=== PATIENT | male | born 1970 | race Caucasian/White ===

== ENCOUNTER 2024-03-01 21:24 | Emergency (ER) | payer OTHER, SELFPAY ==
[2024-03-01 21:25] VITALS: BP 136/80
--- NOTE | 2024-03-01 21:48 | ED.GENMED ---
History of Present Illness
General
Chief Complaint: Skin Surface Trauma
Source: patient and other (friend)
Exam Limitations: none
Time Seen by Provider: 03/01/24 21:37
History of Present Illness
History of Present Illness:
53-year-old male who presents after he slipped on ice, not a restaurant and fell backward striking his head. Patient denies loss of consciousness. Friend reports that he seemed himself right away and just got up. Suffered a small wall head. Does
report a little bit of tightness in his trapezius region bilaterally but states that is just developed over little bit of time. States he is not concerned he broke his neck as he had no immediate pain. Denies numbness or tingling the extremities.
No weakness to the extremities. No vision changes. No nausea.
Past History
Past History
ED Past Medical History: Other (HIV positive, bipolar disorder)
ED Past Surgical History: None
Social History
Living: with family
Phy Exam
Physical Exam
Physical Exam:
CONSTITUTIONAL Vital signs reviewed, Patient alert and oriented to person, place and time. Well-appearing
HEAD small abrasion to the mid posterior top of the scalp. No active bleeding. No crepitus. No step-offs of the skull.
EYES eyelids normal to inspection, Extraocular muscles intact, Conjunctiva normal, Sclera normal.
NECK normal range of motion, Trachea midline, no jugular venous distention. No midline tenderness. Mild trapezius tenderness bilaterally
RESP no respiratory distress
BACK No obvious deformities
UPPER EXTREMITY Gross Range of motion normal, gross motor strength normal
LOWER EXTREMITY Gross range of motion normal, Gross motor strength normal
NEURO Speech normal, No focal motor deficits include, Brockwell coma scale 15, Memory normal, Cranial Nerves intact to screening exam. No pronator drift. Normal gait
SKIN Skin warm, dry, and normal in color.
PSYCHIATRIC Patient oriented to person place and time, Normal affect.
Course
Vital Signs
Initial and Last Documented VS:
Initial Vital Signs
Temp Pulse Resp BP Pulse Ox
97.8 F 76 18 136/80 100
03/01/24 21:25 03/01/24 21:25 03/01/24 21:03/01/24 21:03/01/24 21:25
Last Documented Vital Signs
Temp Pulse Resp BP Pulse Ox
97.8 F 76 18 136/80 100
03/01/24 21:25 03/01/24 21:25 03/01/24 21:25 03/01/24 21:03/01/24 21:25
MDM/Problems Addressed
Differential Diagnosis Includes:
Concussion, intracranial hemorrhage, skull fracture
MDM/Problems Addressed:
Skin abrasion, head injury
*Pulse Oximetry
Patient hypoxic: no
*Critical Care Note
Total Time (30-74mins, 75-104mins- exclusive of procedures): Not Applicable
Data Reviewed
Source: patient and other (Friend)
Further Testing Considered But Not Given:
Consider head CT. However no loss conscious. No current symptoms. Normal neurologic assessment. Low risk injury
Patient Management
Escalation/DeEscalation of care consider admission/obs:
Patient appears well. Shared decision making with the patient regarding head CT. Patient does appear well and he feels comfortable foregoing CT imaging. I did recommend that he closely monitor for any symptoms or return immediately for any
symptoms. Patient agrees. Injury occurred almost an hour ago and patient is well-appearing and without any gross signs of intracranial hemorrhage.
ED Attending Note
-
Portions of this chart may have been created with voice recognition software.� Occasional wrong word or��sound alike� substitutions may have occurred due to the inherent limitations of voice recognition software.
Discharge Plan
Departure
Patient Disposition: Home (Routine Discharge)
Date of Disposition: 03/01/24
Time of Disposition: 21:49
Patient with high blood pressure during this ER visit?: No
Discharge Problem:
Head injury, Abrasion
Instructions: Wound Care (DC), Head Injury in Adults (DC)
Activity Restrictions/Additional Instructions:
Return today for changes in mentation, headache, vomiting, vision changes, motor weakness, numbness, tingling or any other concerns. Please see your doctor in the next 1 week if any symptoms persist.
Interventions
Interventions:
*Risk Screen - Suicide Last Done: 03/01/24 21:25
*General Assessment Last Done: 03/01/24 21:40
*Neglect/Abuse Screening Last Done: 03/01/24 21:25
ED- Fall Risk Assessment Last Done: 03/01/24 21:40
ED- Neurological Assessment Last Done: 03/01/24 21:40
ED-Skin Assessment Last Done: 03/01/24 21:40
Discharge Date and Time
Print Language: SAMI
== END 2024-03-01 21:58 | disposition home or self-care (01) ==
LOC: EMR 21:24
PROVIDERS: EMERGENCY PHYSICIAN Emergency Medicine; FAMILY PHYSICIAN Nurse Practitioner Gerontology
DX: S00.01XA Abrasion of scalp, initial encounter (principal); W00.0XXA Fall on same level due to ice and snow, initial encounter; Z21 Asymptomatic human immunodeficiency virus [HIV] infection status
CPT/HCPCS: 99282

== ENCOUNTER 2024-06-08 22:54 | Emergency (ER) | payer OTHER, SELFPAY ==
[2024-06-08 22:57] VITALS: BP 108/70
--- NOTE | 2024-06-09 00:41 | EDRN ---
L ankle with bruising up his L lateral leg. Pt has pain L buttocks. Pt ambulated through out the day and swelling increased.
--- NOTE | 2024-06-09 01:17 | ED.GENMED ---
History of Present Illness
General
Chief Complaint: Musculo-Skeletal Complaint
Source: patient
Exam Limitations: none
Time Seen by Provider: 06/09/24 00:33
Nursing documentation reviewed up to this point in time: agreed with
History of Present Illness
History of Present Illness:
53-year-old male with history as noted presents for evaluation of left ankle injury. Patient tripped on stairs and suffered inversion injury of the left ankle last night. Had some immediate pain but was able to bear weight today had increased
bruising and swelling and so he came to the ER for evaluation. He denies any other injuries. Denies any head trauma, neck pain, back pain, chest pain or any other complaints.
Past History
Past History
ED Past Medical History: Other (HIV positive, bipolar disorder)
ED Past Surgical History: None
Social History
Living: with family
Review of Systems
Review of Systems
All Other Systems: ROS reviewed and negative except as documented in HPI and ROS
Cardiac: Denies chest pain
ABD/GI: Denies abdominal pain
Musculoskeletal: Reports joint pain; Denies neck pain or back pain
Neurological: Denies headache
Phy Exam
Physical Exam
Physical Exam:
General: Awake, alert, oriented x3; no acute distress
Head: Normocephalic, atraumatic
Eyes: Conjunctiva normal, pupils equal round and reactive to light bilaterally
Throat: Airway intact
Neck: Trachea midline, no cervical spine tenderness
Back: No signs of trauma to the back or flank and no tenderness in the thoracic or lumbar spine
Lungs: Breathing comfortably no distress
Heart: Regular rate; no chest wall tenderness
Abd: Soft, non distended, nontender
Neuro: No gross deficits
Extremities: Patient has some edema around the left ankle; he has bruising anterior lateral left ankle as well as on the lateral margin of the foot and around the toes on the left foot; he has focal tenderness around the lateral malleolus and in the
area of the ATFL; no tenderness of the medial malleolus, midfoot, fifth metatarsal, calcaneus, no tenderness along the Achilles tendon; no tenderness in the left knee; rest of extremities are atraumatic
Scores
Heart Failure Risk
Heart Failure Risk Score: Not Applicable
Heart Score for Chest Pain Patients
STEMI patient?: Not applicable
Withdrawal Assessment of Alcohol
Withdrawal Assessment Completed?: Not applicable
Course
Orders/Labs/Results
Orders:
Orders
06/09/24 00:00
CR Ankle - Left Min 3 Views Urgent
Reason For Exam: fall, injury
CR Foot - Left Min 3 Views Urgent
Reason For Exam: fall, injury
Vital Signs
Initial and Last Documented VS:
Initial Vital Signs
Temp Pulse Resp BP Pulse Ox
37.2 C 70 18 108/70 98
06/08/24 22:57 06/08/24 22:57 06/08/24 22:57 06/08/24 22:57 06/08/24 22:57
Last Documented Vital Signs
Temp Pulse Resp BP Pulse Ox
37.2 C 70 18 108/70 98
06/08/24 22:57 06/08/24 22:57 06/08/24 22:57 06/08/24 22:57 06/08/24 22:57
MDM/Problems Addressed
Differential Diagnosis Includes:
Ankle sprain, ankle fracture
MDM/Problems Addressed:
53-year-old male presents for evaluation after ankle injury as above. X-ray of the foot and ankle reviewed by me shows no acute fracture. Suspect ankle sprain. Will place in Ortho boot, weight-bear as tolerated. Provide crutches to use as
needed. Follow-up with primary doctor as an outpatient. Advised regarding RICE. All questions answered.
*Radiology
Radiology exam reviewed: preliminary read by ED provider
*Pulse Oximetry
Patient hypoxic: no
*Critical Care Note
Total Time (30-74mins, 75-104mins- exclusive of procedures): Not Applicable
Data Reviewed
Source: patient
ED Attending Note
-
Portions of this chart may have been created with voice recognition software.� Occasional wrong word or��sound alike� substitutions may have occurred due to the inherent limitations of voice recognition software.
Discharge Plan
Departure
Patient Disposition: Home (Routine Discharge)
Date of Disposition: 06/09/24
Time of Disposition: 01:21
Patient with high blood pressure during this ER visit?: No
Discharge Problem:
Ankle sprain
Instructions: Sprain (DC), RICE Therapy
Referrals:
Anuja Wallis MD [Family Provider] -
Vitor Herman DPM [Active] - As needed (senior accounting specialist�follow-up as needed if symptoms not improving with conservative measures)
Activity Restrictions/Additional Instructions:
Thank you for visiting the Emergency Department at [facility].
1. Please schedule a follow up appointment as directed. Call first thing tomorrow morning to make an appointment.
2. If indicated, please take your medications as instructed and indicated on discharge paperwork.
3. If any of your symptoms do not improve, or persist, or become more severe within 6-12 hours, please return to the emergency department for further care.
4. Please return to the emergency department if you develop a headache, neck pain/stiffness, fever greater than 100.4F, chest pain, shortness of breath, persistent nausea, vomiting, slurred speech, difficulty walking, numbness/tingling, weakness,
signs of infection or any other symptoms that are worrisome to you.
Please call [phone] if you have any questions.
Interventions
Interventions:
*Risk Screen - Suicide Last Done: 06/08/24 22:59
*General Assessment Last Done: 06/09/24 00:38
*Neglect/Abuse Screening Last Done: 06/08/24 22:59
*ED- Fall Risk Assessment Last Done: 06/08/24 22:59
*ED COVID-19 Vaccine History Last Done: 06/08/24 22:59
ED-Musculoskeletal Assessment Last Done: 06/09/24 00:38
Discharge Date and Time
Print Language: BOLIVIAN
== END 2024-06-09 02:00 | disposition home or self-care (01) ==
LOC: EMR 22:54
PROVIDERS: EMERGENCY PHYSICIAN Emergency Medicine; FAMILY PHYSICIAN Internal Medicine Infectious Disease
DX: S93.402A Sprain of unspecified ligament of left ankle, initial encounter (principal); X50.1XXA Overexertion from prolonged static or awkward postures, initial encounter
CPT/HCPCS: 99283; 73610; 73630